=== PATIENT | male | born 1950 | race Caucasian/White ===

== ENCOUNTER 2019-07-03 01:35 | Emergency (ER) | payer OTHER ==
[2019-07-03 01:46] VITALS: BP 141/69; PULSE 73; TEMP 98.5; BMI 26.9
--- NOTE | 2019-07-03 02:32 | PDOC ---
History of Present Illness - General Chief Complaint: Back Pain Stated Complaint: PAIN Time Seen by Provider: 07/03/19 02:24 History Source: Patient - History of Present Illness Initial Comments: 07/03/19 02:27 68 year old male c/o right buttocks radiating down to right leg. denies trauma/ injiury/ fall denies numbness. weakness or tingling to the leg. patient reports taking tylenol with no pain relief. PMHX: hypertension, diabetes, hypercholesteremia 07/03/19 02:31 Past History - Past Medical History Allergies/Adverse Reactions: Allergies Allergy/AdvReac Type Severity Reaction Status Date / Time No Known Allergies Allergy Verified 07/03/19 01:46 Home Medications: Ambulatory Orders Atorvastatin Ca [Lipitor] 20 mg PO HS 11/29/14 Lisinopril [Prinivil -] 2.5 mg PO DAILY 11/29/14 Insulin (Levemir) [Levemir Flexpen -] 30 units SQ DAILY #0 04/26/15 Cyclobenzaprine HCl [Flexeril -] 10 mg PO TID #10 tablet 07/03/19 Ibuprofen 600 mg PO QID PRN #20 tablet 07/03/19 COPD: No Diabetes: Yes Hypercholesterolemia: Yes - Psycho Social/Smoking Cessation Hx Smoking History: Never smoked Have you smoked in the past 12 months: No Information on smoking cessation initiated: No Hx Alcohol Use: No Drug/Substance Use Hx: No Substance Use Type: Alcohol Review of Systems - Review of Systems Able to Perform ROS?: Yes Is the patient limited Mauritanian proficient: No Constitutional: No: Symptoms Reported, See HPI, Chills, Diaphoresis, Fever, Loss of Appetite, Malaise, Night Sweats, Weakness, Weight Stable, Unintentional Wgt. Loss, Unexplained wgt Loss, Other Musculoskeletal: Yes: Back Pain *Physical Exam - Vital Signs Last Vital Signs Temp Pulse Resp BP Pulse Ox 98.5 F 73 18 141/69 97 07/03/19 01:43 07/03/19 01:43 07/03/19 01:43 07/03/19 01:43 07/03/19 01:43 - Physical Exam General Appearance: Yes: Appropriately Dressed Musculoskeletal: positive: Other (full ROM to right hip, able to raise leg. ). negative: CVA Tenderness, Vertebral Tenderness Extremity: positive: Normal Capillary Refill Integumentary: positive: Normal Color, Dry, Warm Neurologic: positive: Fully Oriented, Alert, Normal Mood/Affect ED Progress Note - Progress Note Progress Note: 07/03/19 04:18 A: right sciatica pain P: Nsaids; Muscle spasms Discharge - Discharge Information Problems reviewed: Yes Clinical Impression/Diagnosis: Sciatica of right side without back pain Disposition: HOME - Additional Discharge Information Prescriptions: Cyclobenzaprine HCl [Flexeril -] 10 mg PO TID #10 tablet Ibuprofen 600 mg PO QID PRN #20 tablet PRN Reason: Back Pain - Follow up/Referral Referrals: Joellen Sanches MD [Primary Care Provider] - Call tomorrow Yovani Lynn MD [Staff Physician] - - Patient Discharge Instructions Patient Printed Discharge Instructions: Sciatica Additional Instructions: 1. Please return to the emergency department with any numbness, tingling, weakness, numbness or tingling to groin or legs, or loss of bowel or bladder function. 2. Use pain medication as ordered. 3. Please is to followup in the office of Dr. lynn for evaluation within a week if no improvement. 4. Ice or heat 5. Refrain from lifting anything above 10 pounds, until pain resolved. - Post Discharge Activity
--- NOTE | 2019-07-03 02:35 | PDOC ---
*Physical Exam - Vital Signs Last Vital Signs Temp Pulse Resp BP Pulse Ox 98.5 F 73 18 141/69 97 07/03/19 01:43 07/03/19 01:43 07/03/19 01:43 07/03/19 01:43 07/03/19 01:43 Medical Decision Making - Medical Decision Making 07/03/19 02:35 Patient seen by the advanced practice provider under my direct supervision. Ancillary testing reviewed as necessary. I agree with plan as outlined by the advanced practice provider. Discharge - Discharge Information Problems reviewed: Yes Clinical Impression/Diagnosis: Sciatica of right side without back pain Disposition: HOME - Additional Discharge Information Prescriptions: Cyclobenzaprine HCl [Flexeril -] 10 mg PO TID #10 tablet Ibuprofen 600 mg PO QID PRN #20 tablet PRN Reason: Back Pain - Follow up/Referral Referrals: Yovani Lynn MD [Staff Physician] - Joellen Sanches MD [Primary Care Provider] - Call tomorrow - Patient Discharge Instructions Patient Printed Discharge Instructions: Sciatica Additional Instructions: 1. Please return to the emergency department with any numbness, tingling, weakness, numbness or tingling to groin or legs, or loss of bowel or bladder function. 2. Use pain medication as ordered. 3. Please is to followup in the office of Dr. lynn for evaluation within a week if no improvement. 4. Ice or heat 5. Refrain from lifting anything above 10 pounds, until pain resolved. - Post Discharge Activity
[2019-07-03] MEDS ORDERED: IBUPROFEN 600 MG TABLET (FP) PO ONE ×2 (02:59→03:04)
== END 2019-07-03 03:04 | disposition home or self-care (01) ==
LOC: JER 01:35
DX: M54.31 Sciatica, right side (principal); I10 Essential (primary) hypertension; E78.00 Pure hypercholesterolemia, unspecified; E11.9 Type 2 diabetes mellitus without complications; Z79.4 Long term (current) use of insulin
CPT/HCPCS: 99281-25

== ENCOUNTER 2020-05-03 03:11 | Observation (INO) | payer OTHER ==
[2020-05-03 04:43] LABS: BASO % 0.4 % (0-2.0); HEMATOCRIT 33.1 % (35.4-49); HEMOGLOBIN 11.1 GM/dL (11.7-16.9); LYMPH % 42.6 % (8-40); MCH 30.3 pg (25.7-33.7); MCHC 33.6 g/dl (32.0-35.9); MEAN CELL VOLUME 90.1 fl (80-96); MEAN PLT VOLUME 8.6 fl (7.5-11.1); MONO % 12.6 % (3.8-10.2); NEUT % 42.4 % (42.8-82.8); PLATELET COUNT 141 K/MM3 (134-434); RBC 3.67 M/mm3 (4.00-5.60); RDW 14.7 % (11.9-15.9); WHITE BLOOD COUNT 2.7 K/mm3 (4.0-10.0)
--- NOTE | 2020-05-03 04:45 | PDOC ---
History of Present Illness - General Chief Complaint: Shortness of Breath Stated Complaint: DIFF BREATHING Time Seen by Provider: 05/03/20 04:07 History Source: Patient Exam Limitations: No Limitations - History of Present Illness Initial Comments: 05/03/20 04:42 69M PMH HTN, HLD, IDDM presenting with orthopnea x 1 month and nocturnal substernal chest pain x 2 night w/o radiating. Denies f/c, ESTEBAN, vision changes, lightheadedness/dizziness. Denies resting or daytime SOB. No recent illnesses. Denies n/v, abd pain. NKDA. Past History - Medical History Allergies/Adverse Reactions: Allergies Allergy/AdvReac Type Severity Reaction Status Date / Time No Known Allergies Allergy Verified 05/03/20 04:29 Home Medications: Ambulatory Orders Atorvastatin Ca [Lipitor] 80 mg PO HS 05/03/20 Ezetimibe 10 mg PO DAILY 05/03/20 Insulin Glargine,Hum.rec.anlog [Lantus Solostar] 34 unit SQ HS 05/03/20 Insulin Lispro [Humalog] 14 unit SQ DAILY 05/03/20 Lisinopril [Zestril] 2.5 mg PO DAILY 05/03/20 Metformin HCl [Glucophage] 500 mg PO BID 05/03/20 COPD: No Diabetes: Yes Hypercholesterolemia: Yes - Psycho-Social/Smoking History Smoking History: Unknown if ever smoked Have you smoked in the past 12 months: No - Substance Abuse Hx (Audit-C & DAST Scrn) How often the patient has a drink containing alcohol: Never Score: In Men: 4 or > Positive; In Women: 3 or > Positive: 0 Screen Result (Pos requires Nsg. Audit-10AR): Negative Review of Systems - Review of Systems Comments:: 05/04/20 08:52 CONSTITUTIONAL: Denies F / C HEENT: Denies headache, lightheadedness, dizziness, changes in vision, cough, sore throat, rhinorrhea RESP: +orthopnea CARD: +cp GI: Denies N / V / D, abdominal pain, bloody stool, inability to tolerate PO : Denies dysuria NEURO: Denies numbness, tingling, weakness MSK: Denies back pain SKIN: Denies rashes *Physical Exam - Vital Signs Last Vital Signs Temp Pulse Resp BP Pulse Ox 98.6 F 63 18 138/69 98 05/03/20 03:39 05/03/20 03:39 05/03/20 03:39 05/03/20 03:39 05/03/20 03:39 - Physical Exam 05/04/20 08:52 GEN: NAD, AAOx3. HEENT: NC/AT, EOMI, PERRL, Normal voice. Supple neck w/ FROM. CV: S1/S2, RRR, no m/r/g LUNG: CTAB, no wheezes, crackles, rales, rhonchi. GI: Soft, ndnt, +BS, no guarding, no rebound. No masses. Neg CVAT b/l. MSK: Trace pitting edema. No obvious deformities of all extremities. SKIN: Warm, dry, no rashes appreciated. PSYCH: Normal mood and affect. NEURO: Moving all extremities well. ED Treatment Course - LABORATORY CBC & Chemistry Diagram: 05/04/20 06:26 05/04/20 06:26 - RADIOLOGY Radiology Studies Ordered: Category Date Time Status CHEST X-RAY PORTABLE* [RAD] Stat Radiology 05/03/20 04:16 Ordered Medical Decision Making - Medical Decision Making 05/04/20 08:52 69F c/o one month orthopnea and 2 nights of substernal chest pain nonradiating. - cardiac labs - ekg - cxr 05/03/20 05:37 EKG 04:32 HR 69 axis and intervals wnl, sinus, no ISIDRO/D, no TWI labs reviewed imaging reviewed concerning presentation will admit tele-obs; pt has no cards 05/03/20 06:43 endorsed to hospitalist team for admission; pending day team attending name Discharge - Discharge Information Problems reviewed: Yes Clinical Impression/Diagnosis: Orthopnea, Chest pain Condition: Stable - Admission Yes - Follow up/Referral - Patient Discharge Instructions - Post Discharge Activity
[2020-05-03 04:59] LABS: INR 0.97 (0.83-1.09); PROTHROMBIN TIME (PATIENT) 11.4 SEC (9.7-13.0)
[2020-05-03 05:02] LABS: ACTIVATED PTT 32.1 SECONDS (25.2-36.5)
[2020-05-03 05:05] LABS: ALBUMIN 3.8 g/dl (3.4-5.0); ALK PHOS 70 U/L (45-117); ANION GAP 6 MMOL/L (8-16); BILIRUBIN,TOTAL 0.6 mg/dL (0.2-1); BLOOD UREA NITROGEN 13.4 mg/dL (7-18); CALCIUM 9.1 mg/dL (8.5-10.1); CHLORIDE 110 mmol/L (98-107); CO2 26 mmol/L (21-32); CREATININE 1.1 mg/dL (0.55-1.3); GLUCOSE,RANDOM 114 mg/dL (74-106); N-TERMINAL BNP 72.8 pg/ml (5-125); POTASSIUM 4.3 mmol/L (3.5-5.1); SGOT/AST 37 U/L (15-37); SGPT/ALT 36 U/L (13-61); SODIUM 142 mmol/L (136-145); TOT PROT 6.1 g/dl (6.4-8.2)
--- NOTE | 2020-05-03 05:42 | PDOC ---
Attending Attestation - Resident Resident Name: Lonnie Heath - ED Attending Attestation I have performed the following: I have examined & evaluated the patient, The case was reviewed & discussed with the resident, I agree w/resident's findings & plan, Exceptions are as noted - HPI HPI: 05/03/20 05:41 69 M with h/o HTN, HLD, DM, presenting with orthopnea x 1 month. Pt reports shortness of breath every night about 15 min after falling asleep. For the past 2 nights, he has also been experiencing substernal chest pain. Denies leg swelling. Denies F/C/cough. - Physicial Exam PE: 05/03/20 05:42 See resident exam - Medical Decision Making 05/03/20 05:42 69 M with orthopnea, chest pain. Possible MOY. Will r/o CHF and ACS. EKG without acute ischemia. - Labs, trop, BNP - CXR Discharge - Discharge Information Problems reviewed: Yes Clinical Impression/Diagnosis: Orthopnea, Chest pain Diabetes mellitus Qualifiers: Diabetes mellitus type: type 2 Diabetes mellitus complication status: with hyperglycemia Qualified Code(s): E11.65 - Condition: Stable - Follow up/Referral - Patient Discharge Instructions - Post Discharge Activity
[2020-05-03] MEDS ORDERED: LISINOPRIL 5 MG TABLET (FP) ONE (10:06)
[2020-05-03] MEDS ORDERED: ENOXAPARIN NA (PORCINE) 40 MG/0.4 ML DISP.SYRIN SQ ONE (10:07)
[2020-05-03] MEDS: EZETIMIBE 10 MG TABLET (FP) PO SCH (10:18)
[2020-05-03] MEDS: LISINOPRIL 5 MG TABLET (FP) PO SCH (10:18)
[2020-05-03] MEDS: ENOXAPARIN NA (PORCINE) 40 MG/0.4 ML DISP.SYRIN SQ SCH (10:18)
[2020-05-03] MEDS: INSULIN SLIDING SCALE (NOVOLOG) 1 VIAL SQ SCH ×3 (10:19→22:16)
--- NOTE | 2020-05-03 12:17 | HP ---
CHIEF COMPLAINT: shortness of breath, chest pain PCP: Dr. Sanches HISTORY OF PRESENT ILLNESS: Patient is a 69 year old male with history of hypertension, hyperlipidemia, diabetes mellitus (insulin dependent) presents with complaint of orthopnea. He endorses that for the past month he feels worsening shortness of breath after he lays down. He states that over the past two days the shortness of breath is accompanied by a dull left sided chest pain. which prompted his hospital presentation. He denies prior occurrence of these symptoms. He sleeps with one pillow, which is his baseline. The shortness of breath is not pleuritic. Patient endorses that he has no chest pain/ shortness of breath with physical exertion; these symptoms only occur when he tries to go to sleep. He denies sick contacts. Denies subjective fevers, chills, palpitations, abdominal pain, nausea, vomiting, diarrhea, constipation, melena, hematochezia. Upon my encounter, patient resting comfortably, without any chest pain/ pressure. ER course was notable for: (1) EKG normal sinus rhythm at 69 BPM. Initial troponin 0.02 (2) (3) Recent Travel: denies PAST MEDICAL HISTORY: hypertension, hyperlipidemia, diabetes mellitus (insulin dependent) PAST SURGICAL HISTORY: denies FAMILY HISTORY: Mother: diabetes mellitus Father: NH at 64 years old Social History: Lives with roommate. 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 Independent in activities of daily living. Does not ambulate with cane of walker at baseline. Smoking: denies smoking cigarettes Alcohol: endorses one- two beers a week Drugs: denies illicit drug use Allergies No Known Allergies Allergy (Verified 05/03/20 04:29) HOME MEDICATIONS: Home Medications Medication Instructions Recorded Atorvastatin Ca [Lipitor] 80 mg PO HS 05/03/20 Ezetimibe 10 mg PO DAILY 05/03/20 Insulin Glargine,Hum.rec.anlog unit SQ 05/03/20 [Lantus Solostar] Insulin Lispro [Humalog] unit SQ 05/03/20 Lisinopril [Zestril] 2.5 mg PO DAILY 05/03/20 Metformin HCl [Glucophage] 500 mg PO BID 05/03/20 REVIEW OF SYSTEMS CONSTITUTIONAL: Absent: fever, chills, diaphoresis, generalized weakness, malaise, loss of appetite, weight change HEENT: Absent: rhinorrhea, nasal congestion, throat pain, throat swelling, difficulty swallowing, mouth swelling, ear pain, eye pain, visual changes CARDIOVASCULAR: Admits: rica pain (currently resolved). Absent: syncope, palpitations, irregular heart rate, lightheadedness, peripheral edema RESPIRATORY: Admits: shortness of breath, orthopnea. Absent: cough, dyspnea with exertion, wheezing, stridor, hemoptysis GASTROINTESTINAL: Absent: abdominal pain, abdominal distension, nausea, vomiting, diarrhea, constipation, melena, hematochezia GENITOURINARY: Absent: dysuria, frequency, urgency, hesitancy, hematuria, flank pain, genital pain MUSCULOSKELETAL: Absent: myalgia, arthralgia, joint swelling, back pain, neck pain SKIN: Absent: rash, itching, pallor HEMATOLOGIC/IMMUNOLOGIC: Absent: easy bleeding, easy bruising, lymphadenopathy, frequent infections ENDOCRINE: Absent: unexplained weight gain, unexplained weight loss, heat intolerance, cold intolerance NEUROLOGIC: Absent: headache, focal weakness or paresthesias, dizziness, unsteady gait, seizure, mental status changes, bladder or bowel incontinence PSYCHIATRIC: Absent: anxiety, depression, suicidal or homicidal ideation, hallucinations. PHYSICAL EXAMINATION Vital Signs - 24 hr 05/03/20 05/03/20 05/03/20 03:39 06:04 06:17 Temperature 98.6 F 98.5 F Pulse Rate 63 Pulse Rate [ 63 Left] Respiratory 18 16 Rate Blood Pressure 138/69 Blood Pressure 126/72 [Arm] O2 Sat by Pulse 98 99 100 Oximetry (%) 05/03/20 05/03/20 05/03/20 08:00 08:04 10:13 Temperature 98.5 F Pulse Rate Pulse Rate [ 61 61 56 L Left] Respiratory 18 18 16 Rate Blood Pressure Blood Pressure 124/64 124/64 116/85 [Arm] O2 Sat by Pulse 98 98 99 Oximetry (%) GENERAL: The patient is awake, alert, and fully oriented, in no acute distress. HEAD: Normocephalic, atraumatic. EYES: PERRL, extraocular movements intact, sclera anicteric, conjunctiva clear. ENT: Oropharynx clear, without erythema or exudates. Moist mucous membranes. NECK: Trachea midline, full range of motion. Supple without lymphadenopathy. LUNGS: Breath sounds equal, clear to auscultation bilaterally. No wheezes, no cr ackles. No accessory muscle use. HEART: Regular rate and rhythm. S1, S2 without murmur, rub or gallop. Chest pain not reproducible with palpation. ABDOMEN: Soft, nondistended, nontender to light and deep palpation x4 quadrants. No rebound tenderness, no guarding. Normoactive bowel sounds x4 quadrants. No masses appreciated. EXTREMITIES: 2+ radial, dorsalis pedis pulses bilaterally. Warm, well-perfused. No lower extremity edema bilaterally. NEUROLOGICAL: Cranial nerves II through XII grossly intact. Normal speech. No gross focal deficits. PSYCH: Normal mood, normal affect upon my encounter. SKIN: Warm, dry. Venous stasis changes in the lower legs/ ankles. Laboratory Results - last 24 hr 05/03/20 05/03/20 05/03/20 04:15 04:15 04:15 WBC 2.7 L RBC 3.67 L Hgb 11.1 L Hct 33.1 L MCV 90.1 MCH 30.3 MCHC 33.6 RDW 14.7 Plt Count 141 MPV 8.6 Absolute Neuts (auto) 1.1 L Neutrophils % 42.4 L Lymphocytes % 42.6 H Monocytes % 12.6 H Eosinophils % 2.0 D Basophils % 0.4 Nucleated RBC % 0 PT with INR 11.40 INR 0.97 PTT (Actin FS) 32.1 Sodium 142 Potassium 4.3 Chloride 110 H Carbon Dioxide 26 Anion Gap 6 L BUN 13.4 Creatinine 1.1 Est GFR (CKD-EPI)AfAm 78.41 Est GFR (CKD-EPI)NonAf 67.66 POC Glucometer Random Glucose 114 H Hemoglobin A1c % Calcium 9.1 Total Bilirubin 0.6 AST 37 ALT 36 Alkaline Phosphatase 70 Creatine Kinase 188 Creatine Kinase Index 1.5 CK-MB (CK-2) 3.0 Troponin I < 0.02 B-Natriuretic Peptide 72.8 Total Protein 6.1 L Albumin 3.8 05/03/20 05/03/20 05/03/20 04:15 10:16 10:21 WBC RBC Hgb Hct MCV MCH MCHC RDW Plt Count MPV Absolute Neuts (auto) Neutrophils % Lymphocytes % Monocytes % Eosinophils % Basophils % Nucleated RBC % PT with INR INR PTT (Actin FS) Sodium Potassium Chloride Carbon Dioxide Anion Gap BUN Creatinine Est GFR (CKD-EPI)AfAm Est GFR (CKD-EPI)NonAf POC Glucometer 134 Random Glucose Hemoglobin A1c % 7.6 H Calcium Total Bilirubin AST ALT Alkaline Phosphatase Creatine Kinase Creatine Kinase Index CK-MB (CK-2) Troponin I < 0.02 B-Natriuretic Peptide Total Protein Albumin 05/03/20 10:39 WBC RBC Hgb Hct MCV MCH MCHC RDW Plt Count MPV Absolute Neuts (auto) Neutrophils % Lymphocytes % Monocytes % Eosinophils % Basophils % Nucleated RBC % PT with INR INR PTT (Actin FS) Sodium Potassium Chloride Carbon Dioxide Anion Gap BUN Creatinine Est GFR (CKD-EPI)AfAm Est GFR (CKD-EPI)NonAf POC Glucometer Random Glucose Hemoglobin A1c % 7.8 H Calcium Total Bilirubin AST ALT Alkaline Phosphatase Creatine Kinase Creatine Kinase Index CK-MB (CK-2) Troponin I B-Natriuretic Peptide Total Protein Albumin ASSESSMENT/PLAN: Patient is a 69 year old male with history of hypertension, hyperlipidemia, diabetes mellitus (insulin dependent) presents with complaint of orthopnea. Orthopnea, atypical chest pain -Symptoms ocuring mainly in evening when patient trying to sleep. Curretnly without chest pain. EKG without ischemic changes, initial troponin negative. Concern for obstructive sleep apnea, however will also need to rule out ACS. Doubt CHF exacerbation given BNP 72, clear lungs, and negative lower extremity edema bilaterally. Less likely PE given patient saturating 100% on room air, without tachypnea, or tachycardia. -Telemetry cardiac monitoring. -Overnight continuous pulse oximetry monitoring. -Obtain cardiac transthoracic ECHO -Serial troponin -Cardiology evaluation (Dr. Bartlett). Given risk factors,family history may need stress testing prior to discharge. -Will initiate PPI- upon re-evaluation pain may be epigastric ?GERD History of hypertension -Reinstate home Lisinopril History of hyperliidemia -Reinstate home Atorvastatin, Ezetimibe History of diabetes mellitus, insulin dependent -HgbA1c -Fingerstick blood glucose ACHS -Insulin sliding sale ACHS -Insulin Levemir FEN -No IV fluids indicated -Follow BMP -Sodium controlled, diabetic modification diet Prophylaxis -Lovenox 40mg subq daily Disposition -Telemetry observation. Family Medical History Family History: As Documented Visit type - Medication Review Med list reviewed for High Risk Meds patients 65 and older: Yes - Emergency Visit Emergency Visit: Yes ED Registration Date: 05/03/20 Care time: The patient presented to the Emergency Department on the above date and was hospitalized for further evaluation of their emergent condition. - New Patient This patient is new to me today: Yes Date on this admission: 05/04/20 - Critical Care Critical Care patient: No ATTENDING PHYSICIAN STATEMENT I saw and evaluated the patient. I reviewed the resident's note and discussed the case with the resident. I agree with the resident's findings and plan as documented. SUBJECTIVE: OBJECTIVE: ASSESSMENT AND PLAN:
[2020-05-03] MEDS: PANTOPRAZOLE 40 MG TABLET PO SCH (12:37)
--- NOTE | 2020-05-03 16:36 | PN ---
Teaching Attending Note Name of Resident: John Schwartz ATTENDING PHYSICIAN STATEMENT I saw and evaluated the patient. I reviewed the resident's note and discussed the case with the resident. I agree with the resident's findings and plan as documented. SUBJECTIVE: Reports SOB while sleeping for past 2 nights with associated central chest discomfort. No fever/chills/cough/sputum/hemoptysis. OBJECTIVE: Afebrile, Hemodynamically stable. Last Vital Signs Temp Pulse Resp BP Pulse Ox 98.5 F 56 L 16 116/85 99 05/03/20 08:04 05/03/20 10:13 05/03/20 10:13 05/03/20 10:13 05/03/20 10:13 HEENT - Atraumatic, Normocephalic. Heart - S1, S2, RRR Lungs - clear to auscultation Abdomen - Soft, non-tender. Bowel Sounds normal. Extremities - no edema, no calf tenderness Neuro - AAO x 3. Tone/Power normal. Laboratory Results - last 24 hr 05/03/20 05/03/20 05/03/20 04:15 04:15 04:15 WBC 2.7 L RBC 3.67 L Hgb 11.1 L Hct 33.1 L MCV 90.1 MCH 30.3 MCHC 33.6 RDW 14.7 Plt Count 141 MPV 8.6 Absolute Neuts (auto) 1.1 L Neutrophils % 42.4 L Lymphocytes % 42.6 H Monocytes % 12.6 H Eosinophils % 2.0 D Basophils % 0.4 Nucleated RBC % 0 PT with INR 11.40 INR 0.97 PTT (Actin FS) 32.1 Sodium 142 Potassium 4.3 Chloride 110 H Carbon Dioxide 26 Anion Gap 6 L BUN 13.4 Creatinine 1.1 Est GFR (CKD-EPI)AfAm 78.41 Est GFR (CKD-EPI)NonAf 67.66 POC Glucometer Random Glucose 114 H Hemoglobin A1c % Calcium 9.1 Total Bilirubin 0.6 AST 37 ALT 36 Alkaline Phosphatase 70 Creatine Kinase 188 Creatine Kinase Index 1.5 CK-MB (CK-2) 3.0 Troponin I < 0.02 B-Natriuretic Peptide 72.8 Total Protein 6.1 L Albumin 3.8 05/03/20 05/03/20 05/03/20 04:15 10:16 10:21 WBC RBC Hgb Hct MCV MCH MCHC RDW Plt Count MPV Absolute Neuts (auto) Neutrophils % Lymphocytes % Monocytes % Eosinophils % Basophils % Nucleated RBC % PT with INR INR PTT (Actin FS) Sodium Potassium Chloride Carbon Dioxide Anion Gap BUN Creatinine Est GFR (CKD-EPI)AfAm Est GFR (CKD-EPI)NonAf POC Glucometer 134 Random Glucose Hemoglobin A1c % 7.6 H Calcium Total Bilirubin AST ALT Alkaline Phosphatase Creatine Kinase Creatine Kinase Index CK-MB (CK-2) Troponin I < 0.02 B-Natriuretic Peptide Total Protein Albumin 05/03/20 05/03/20 10:39 14:36 WBC RBC Hgb Hct MCV MCH MCHC RDW Plt Count MPV Absolute Neuts (auto) Neutrophils % Lymphocytes % Monocytes % Eosinophils % Basophils % Nucleated RBC % PT with INR INR PTT (Actin FS) Sodium Potassium Chloride Carbon Dioxide Anion Gap BUN Creatinine Est GFR (CKD-EPI)AfAm Est GFR (CKD-EPI)NonAf POC Glucometer Random Glucose Hemoglobin A1c % 7.8 H Calcium Total Bilirubin AST ALT Alkaline Phosphatase Creatine Kinase 140 Creatine Kinase Index CK-MB (CK-2) Troponin I < 0.02 B-Natriuretic Peptide Total Protein Albumin Current Medications Generic Name Dose Route Start Last Admin Trade Name Freq PRN Reason Stop Dose Admin Atorvastatin Calcium 80 mg 05/03/20 22:00 Lipitor - PO HS DANI Ezetimibe 10 mg 05/03/20 10:00 05/03/20 10:18 Zetia - PO 10 mg DAILY DANI Administration Enoxaparin Sodium 40 mg 05/03/20 10:00 05/03/20 10:18 Lovenox - SQ 40 mg DAILY DANI Administration Insulin Aspart 1 vial 05/03/20 11:00 05/03/20 10:19 Novolog Vial Sliding Scale - SQ Not Given ACHS [facility] Protocol Insulin Detemir 20 units 05/03/20 22:00 Levemir Vial SQ HS DANI Lisinopril 2.5 mg 05/03/20 10:00 05/03/20 10:18 Prinivil PO 2.5 mg DAILY DANI Administration Pantoprazole Sodium 40 mg 05/03/20 12:30 05/03/20 12:37 Protonix - PO 40 mg DAILY DANI Administration Home Medications Medication Instructions Recorded Atorvastatin Ca [Lipitor] 80 mg PO HS 05/03/20 Ezetimibe 10 mg PO DAILY 05/03/20 Insulin Glargine,Hum.rec.anlog unit SQ 05/03/20 [Lantus Solostar] Insulin Lispro [Humalog] unit SQ 05/03/20 Lisinopril [Zestril] 2.5 mg PO DAILY 05/03/20 Metformin HCl [Glucophage] 500 mg PO BID 05/03/20 ASSESSMENT AND PLAN: 69 year old male with history of HTN, HLD, DM 2, presents with complaint of orthopnea with central chest discomfort. 1. Atypical Chest Pain on background history of Orthopnea, worse over past month. ECG - no acute changes TropI neg x 3. BNP 72 Telemonitoring Echo No signs of fluid overload/CHF Cardio evaluation requested Possible GERD - trial of PPI. 2. HTN - Continue Lisinopril 3. HLD - Continue Lipitor 4. DM 2 - Metformin held. Maintain on Levemir/Novolog sliding scale. 5. L Humerus Sclerotic density, possible bone infarct - further confirmatory Ix as out-patient. DVT Px - Lovenox SQ
[2020-05-03] MEDS: INSULIN (LEVEMIR) 100 UNITS/ML UNITS SQ SCH (22:16)
[2020-05-03] MEDS: ATORVASTATIN CA 80 MG TABLET (FP) PO SCH (22:16)
[2020-05-03 22:43] VITALS: BMI 27.6
[2020-05-04] MEDS: INSULIN SLIDING SCALE (NOVOLOG) 1 VIAL SQ SCH ×4 (06:16→21:55)
--- NOTE | 2020-05-04 07:32 | CON.CARD ---
Consult Consult Specialty:: cardio - History of Present Illness Chief Complaint: sob History of Present Illness: 69 year old male here with orthopnea. he notes shortness of breath after he lays down for the past 3 mo, never sob with exertion/activity. for past few days this is accompanied by a dull left sided chest pain. states that he can walk a lot outside, likes to in fact, 10 or more blocks and never feels chest discomfort or sob. but VERY prominent sx's when lays down in bed. stable for a while now. no leg swelling. denies nasal congestion/obstruction, wheezing or acid/heartburn sx's BNP 72 trop neg x 3 he is monitored by heme at [facility] for leukopenia and anemia (baseline 12), etiology undetermined at this point prior h/o etoh use never cigs fever with cough in 01/06--Covid Ab 02/[address] meza (our practice) ordered echo and stress test due to above sx's back in 02/05, not yet completed PMH: HTN, HPL, DM - Alcohol/Substance Use Hx Alcohol Use: No - Smoking History Smoking history: Never smoked Have you smoked in the past 12 months: No Home Medications - Allergies Allergies/Adverse Reactions: Allergies Allergy/AdvReac Type Severity Reaction Status Date / Time No Known Allergies Allergy Verified 05/03/20 04:29 - Home Medications Home Medications: Ambulatory Orders Atorvastatin Ca [Lipitor] 80 mg PO HS 05/03/20 Ezetimibe 10 mg PO DAILY 05/03/20 Insulin Glargine,Hum.rec.anlog [Lantus Solostar] 34 unit SQ HS 05/03/20 Insulin Lispro [Humalog] 14 unit SQ DAILY 05/03/20 Lisinopril [Zestril] 2.5 mg PO DAILY 05/03/20 Metformin HCl [Glucophage] 500 mg PO BID 05/03/20 Family Medical History Family History: Denies (no known cmp) Review of Systems - Review of Systems Constitutional: denies: Chills, Fever Eyes: denies: Eye Pain HENT: denies: Nasal Congestion Neck: denies: Stiffness Cardiovascular: denies: Palpitations Respiratory: reports: Orthopnea. denies: PND, Wheezing Gastrointestinal: denies: Diarrhea, Rectal Bleeding Genitourinary: denies: Burning, Hematuria Musculoskeletal: denies: Muscle Pain Integumentary: denies: Rash Neurological: denies: Numbness, Seizure, Syncope Endocrine: denies: Excessive Sweating Hematology/Lymphatic: denies: Excessive Bleeding Vital Signs: Vital Signs Temperature 98.3 F 05/04/20 06:00 Pulse Rate 55 L 05/04/20 06:00 Respiratory Rate 20 05/04/20 06:00 Blood Pressure 136/63 05/04/20 06:00 O2 Sat by Pulse Oximetry (%) 95 05/04/20 06:00 Constitutional: Yes: Well Nourished, No Distress Eyes: No: Sclera Icterus HENT: No: Nasal Congestion Neck: No: Decreased ROM Respiratory: Yes: CTA Bilaterally. No: Accessory Muscle Use Gastrointestinal: Yes: Normal Bowel Sounds. No: Distention, Hepatomegaly, Palpable Mass, Tenderness Cardiovascular: Yes: Regular Rate and Rhythm JVD: No Carotid Bruit: No PMI: Non-Displaced Heart Sounds: Yes: S1, S2. No: Gallop Murmur: No: Systolic Murmur, Diastolic Murmur Musculoskeletal: Yes: Other (No kyphosis) Extremities: No: Cool, Cyanosis Edema: No Peripheral Pulses: 2+ Left Carotid, 2+ Right Carotid, 2+ Left Doralis Pedis, 2+ Right Dorsalis Pedis Integumentary: No: Jaundice Neurological: Yes: Alert, Oriented (x3) Psychiatric: No: Agitated - Other Data Labs, Other Data: CBC, BMP 05/03/20 04:15 05/03/20 04:15 INR, PTT INR 0.97 (0.83-1.09) 05/03/20 04:15 Troponin, BNP 05/03/20 05/03/20 10:21 14:36 Troponin I < 0.02 < 0.02 Troponin, BNP 05/03/20 05/03/20 10:21 14:36 Troponin I < 0.02 < 0.02 Assessment/Plan ECG: NSR, WNL CXR: clear lungs/pleura tele: NSR sob, chest discomfort: -sx began 02/05, following undiagnosed/untreated Covid 01/06 (Abs 02/05 positive) -atypical occurs only in bed, not with activity -has had no signs of HF and no activities with moderate amt of exertion. -ECG normal, trop neg x 3 -this is not a sx of angina--stress test not indicated -echo tomorrow for LVSF (rf's of etoh, post-covid, DM) HTN: -BP controlled -home meds HPL: -cont prior plan DM: -per hospitalist leukopenia, anemia: -chronic, stable--being followed closely by his PMD and by heme at [facility]
[2020-05-04 07:56] LABS: HEMATOCRIT 34.6 % (35.4-49); HEMOGLOBIN 11.7 GM/dL (11.7-16.9); MCH 30.4 pg (25.7-33.7); MCHC 33.8 g/dl (32.0-35.9); MEAN PLT VOLUME 9.4 fl (7.5-11.1); PLATELET COUNT 146 K/MM3 (134-434); RBC 3.85 M/mm3 (4.00-5.60); RDW 14.6 % (11.9-15.9); WHITE BLOOD COUNT 3.9 K/mm3 (4.0-10.0)
[2020-05-04 08:33] LABS: BLOOD UREA NITROGEN 14.2 mg/dL (7-18); CALCIUM 9.1 mg/dL (8.5-10.1); MAGNESIUM 2.1 mg/dL (1.8-2.4); PHOSPHOROUS 3.6 mg/dL (2.5-4.9); POTASSIUM 4.1 mmol/L (3.5-5.1)
[2020-05-04] MEDS: PANTOPRAZOLE 40 MG TABLET PO SCH (09:24)
[2020-05-04] MEDS: ENOXAPARIN NA (PORCINE) 40 MG/0.4 ML DISP.SYRIN SQ SCH (09:24)
[2020-05-04] MEDS: LISINOPRIL 5 MG TABLET (FP) PO SCH (09:24)
[2020-05-04] MEDS: EZETIMIBE 10 MG TABLET (FP) PO SCH (09:24)
--- NOTE | 2020-05-04 13:17 | PN ---
Progress Note (short form) - Note Progress Note: SUBJECTIVE: Reports SOB while sleeping with associated central chest discomfort. No fever/chills/cough/sputum/hemoptysis. OBJECTIVE: Afebrile, Hemodynamically stable. Last Vital Signs Temp Pulse Resp BP Pulse Ox 97.8 F 68 16 116/56 L 96 05/04/20 09:28 05/04/20 09:28 05/04/20 09:28 05/04/20 09:28 05/04/20 09:28 Heart - S1, S2, RRR Lungs - clear to auscultation Abdomen - Soft, non-tender. Bowel Sounds normal. Extremities - no edema, no calf tenderness Neuro - AAO x 3. Tone/Power normal. Laboratory Results - last 24 hr 05/03/20 05/03/20 05/03/20 06:15 14:36 17:29 WBC RBC Hgb Hct MCV MCH MCHC RDW Plt Count MPV Sodium Potassium Chloride Carbon Dioxide Anion Gap BUN Creatinine Est GFR (CKD-EPI)AfAm Est GFR (CKD-EPI)NonAf POC Glucometer 138 Random Glucose Calcium Phosphorus Magnesium Creatine Kinase 140 Troponin I < 0.02 COVID-19 ([facility]) Not detected 05/03/20 05/04/20 05/04/20 22:04 06:15 06:26 WBC 3.9 L RBC 3.85 L Hgb 11.7 Hct 34.6 L MCV 90.0 MCH 30.4 MCHC 33.8 RDW 14.6 Plt Count 146 MPV 9.4 Sodium Potassium Chloride Carbon Dioxide Anion Gap BUN Creatinine Est GFR (CKD-EPI)AfAm Est GFR (CKD-EPI)NonAf POC Glucometer 214 85 Random Glucose Calcium Phosphorus Magnesium Creatine Kinase Troponin I COVID-19 ([facility]) 05/04/20 05/04/20 06:26 11:54 WBC RBC Hgb Hct MCV MCH MCHC RDW Plt Count MPV Sodium 143 Potassium 4.1 Chloride 109 H Carbon Dioxide 28 Anion Gap 6 L BUN 14.2 Creatinine 1.0 Est GFR (CKD-EPI)AfAm 87.99 Est GFR (CKD-EPI)NonAf 75.92 POC Glucometer 220 Random Glucose 86 Calcium 9.1 Phosphorus 3.6 Magnesium 2.1 Creatine Kinase Troponin I COVID-19 ([facility]) Current Medications Generic Name Dose Route Start Last Admin Trade Name Freq PRN Reason Stop Dose Admin Atorvastatin Calcium 80 mg 05/03/20 22:00 05/03/20 22:16 Lipitor - PO 80 mg HS DANI Administration Ezetimibe 10 mg 05/03/20 10:00 05/04/20 09:24 Zetia - PO 10 mg DAILY DANI Administration Enoxaparin Sodium 40 mg 05/03/20 10:00 05/04/20 09:24 Lovenox - SQ 40 mg DAILY DANI Administration Insulin Aspart 1 vial 05/03/20 11:00 05/04/20 11:59 Novolog Vial Sliding Scale - SQ 4 units ACHS DANI Administration Protocol Insulin Detemir 20 units 05/03/20 22:00 05/03/20 22:16 Levemir Vial SQ 20 units HS DANI Administration Lisinopril 2.5 mg 05/03/20 10:00 05/04/20 09:24 Prinivil PO 2.5 mg DAILY DANI Administration Pantoprazole Sodium 40 mg 05/03/20 12:30 05/04/20 09:24 Protonix - PO 40 mg DAILY DANI Administration Home Medications Medication Instructions Recorded Atorvastatin Ca [Lipitor] 80 mg PO HS 05/03/20 Ezetimibe 10 mg PO DAILY 05/03/20 Insulin Glargine,Hum.rec.anlog 34 unit SQ HS 05/03/20 [Lantus Solostar] Insulin Lispro [Humalog] 14 unit SQ DAILY 05/03/20 Lisinopril [Zestril] 2.5 mg PO DAILY 05/03/20 Metformin HCl [Glucophage] 500 mg PO BID 05/03/20 ASSESSMENT AND PLAN: 69 year old male with history of HTN, HLD, DM 2, presents with complaint of orthopnea with central chest discomfort. 1. Atypical Chest Pain on background history of Orthopnea, worse over past month. ECG - no acute changes TropI neg x 3. BNP 72 Telemonitoring Echo pending No signs of fluid overload/CHF Cardio evaluated and recommends Stress test in AM. Overnight pulse oximetry monitoring - may benefit from sleep study as outpatient for possible sleep apnea. 2. Possible GERD - trial of PPI 3. HTN - Continue Lisinopril 4. HLD - Continue Lipitor 5. DM 2 - Metformin held. Maintain on Levemir/Novolog sliding scale. 6. L Humerus Sclerotic density, possible bone infarct - further confirmatory Ix as out-patient. 7, Leukopenia - chronic, being worked up at [facility]. DVT Px - Lovenox SQ Visit type - Emergency Visit Emergency Visit: Yes ED Registration Date: 05/03/20 Care time: The patient presented to the Emergency Department on the above date and was hospitalized for further evaluation of their emergent condition. - New Patient This patient is new to me today: No - Critical Care Critical Care patient: No - Discharge Referral Referred to [facility] Med P.C[facility] No - Medication Review Med list reviewed for High Risk Meds patients 65 and older: Yes
--- NOTE | 2020-05-04 18:25 | EKG ---
Test Reason : Blood Pressure : / mmHG Vent. Rate : 069 BPM Atrial Rate : 069 BPM P-R Int : 164 ms QRS Dur : 076 ms QT Int : 398 ms P-R-T Axes : 048 006 021 degrees QTc Int : 426 ms NORMAL SINUS RHYTHM NORMAL ECG WHEN COMPARED WITH ECG OF 24-APR-2015 20:14, NO SIGNIFICANT CHANGE WAS FOUND Confirmed by MD RUSHING MOYSES ([id number]) on 05/04/2020 6:25:39 PM Referred By: Confirmed By:FLOYD RUSHING MD
[2020-05-04] MEDS: ATORVASTATIN CA 80 MG TABLET (FP) PO SCH (21:48)
[2020-05-04] MEDS: INSULIN (LEVEMIR) 100 UNITS/ML UNITS SQ SCH (21:55)
[2020-05-05] MEDS: INSULIN SLIDING SCALE (NOVOLOG) 1 VIAL SQ SCH ×4 (06:02→21:41)
[2020-05-05] MEDS: EZETIMIBE 10 MG TABLET (FP) PO SCH (09:36)
[2020-05-05] MEDS: PANTOPRAZOLE 40 MG TABLET PO SCH (09:36)
[2020-05-05] MEDS: LISINOPRIL 5 MG TABLET (FP) PO SCH (09:36)
[2020-05-05] MEDS: ENOXAPARIN NA (PORCINE) 40 MG/0.4 ML DISP.SYRIN SQ SCH (09:37)
--- NOTE | 2020-05-05 11:17 | ECHO ---
Name: OTTO LAWRENCE Exam:Adult Echocardiogram Study Date: 05/05/2020 09:57 AM Age: 69 yrs Reason For Study: Chest pain Height: 66 in Weight: 173 lb BSA: 1.9 m2 MMode/2D Measurements & Calculations IVSd: 1.8 cm Ao root diam: 3.1 cm LVIDd: 3.8 cm LA dimension: 4.4 cm LVIDs: 2.5 cm ACS: 1.9 cm LVPWd: 0.88 cm LVPWs: 0.87 cm EDV(Teich): 62.9 ml ESV(Teich): 21.4 ml LVOT diam: 2.0 cm LAV (MOD-bp): 32.0 ml TAPSE: 1.8 cm RV S Zenon: 15.9 cm/sec Doppler Measurements & Calculations MV V2 max: 108.0 cm/sec MV E max zenon: 94.8 cm/sec MV max P.7 mmHg MV A max zenon: 70.1 cm/sec MV V2 mean: 66.7 cm/sec MV E/A: 1.4 MV mean P.0 mmHg MV dec time: 0.27 sec MV V2 VTI: 33.0 cm Ao V2 max: 163.4 cm/sec LV V1 max P.0 mmHg Ao max P.7 mmHg LV V1 max: 112.0 cm/sec KARINA(V,D): 2.0 cm2 MR max zenon: 402.8 cm/sec TR max zenon: 265.2 cm/sec MR max P.8 mmHg TR max P.1 mmHg PA V2 max: 133.0 cm/sec Med Peak E' Zenon: 7.6 cm/sec PA max P.1 mmHg Med E/e': 12.5 Lat Peak E' Zenon: 10.3 cm/sec Lat E/e': 9.2 Procedure A complete two-dimensional transthoracic echocardiogram was performed (2D, M-mode, Doppler and color flow Doppler). Left Ventricle The left ventricle is normal in size. Left ventricular systolic function is normal. Ejection Fraction = 60- 65%. No regional wall motion abnormalities noted. Right Ventricle The right ventricle is normal size. The right ventricular systolic function is normal. RV systolic TD I is 16 cm/s. Atria The left atrial size is normal. LA volume index is 17 ml/m2. Right atrial size is normal. Mitral Valve There is mild mitral valve thickening. There is mild mitral annular calcification. There is mild mitr al regurgitation. Tricuspid Valve The tricuspid valve is normal in structure and function. There is mild tricuspid regurgitation. PASP is at least 34 mmHg if RA pressure is assumed 3 mmHg. (IVC was not adequately visualized to assess RA press ure). Aortic Valve There is mild aortic sclerosis.;. No aortic regurgitation is present. Pulmonic Valve The pulmonic valve is not well seen, but is grossly normal. Trace to mild pulmonic valvular regurgita tion. Great Vessels The aortic root is normal size. Pericardium/Pleura There is no pericardial effusion. Interpretation Summary The left ventricle is normal in size. Left ventricular systolic function is normal. No regional wall motion abnormalities noted. Ejection Fraction = 60-65%. The right ventricular systolic function is normal. The left atrial size is normal. Right atrial size is normal. There is mild mitral valve thickening. There is mild mitral annular calcification. There is mild mitral regurgitation. There is mild tricuspid regurgitation. PASP is at least 34 mmHg if RA pressure is assumed 3 mmHg. (IVC was not adequately visualized to asse ss RA pressure) There is mild aortic sclerosis. Trace to mild pulmonic valvular regurgitation. There is no pericardial effusion. Ángel Vasquez MD 05/05/2020 11:16 AM
[2020-05-05 12:11] LABS: HEMATOCRIT 33.8 % (35.4-49); HEMOGLOBIN 11.3 GM/dL (11.7-16.9); MCH 29.6 pg (25.7-33.7); MCHC 33.3 g/dl (32.0-35.9); MEAN CELL VOLUME 88.9 fl (80-96); MEAN PLT VOLUME 8.7 fl (7.5-11.1); PLATELET COUNT 139 K/MM3 (134-434); RBC 3.81 M/mm3 (4.00-5.60); RDW 14.4 % (11.9-15.9); WHITE BLOOD COUNT 2.6 K/mm3 (4.0-10.0)
--- NOTE | 2020-05-05 12:20 | PN ---
Progress Note (short form) - Note Progress Note: Chief Complaint: sob s: feels well today, no cp sob palps dizzy Current Medications Generic Name Dose Route Start Last Admin Trade Name Ghislaine PRN Reason Stop Dose Admin Atorvastatin Calcium 80 mg 05/03/20 22:00 05/04/20 21:48 Lipitor - PO 80 mg HS DANI Administration Ezetimibe 10 mg 05/03/20 10:00 05/05/20 09:36 Zetia - PO 10 mg DAILY DANI Administration Enoxaparin Sodium 40 mg 05/03/20 10:00 05/05/20 09:37 Lovenox - SQ 40 mg DAILY DANI Administration Insulin Aspart 1 vial 05/03/20 11:00 05/05/20 11:37 Novolog Vial Sliding Scale - SQ 2 units ACHS DANI Administration Protocol Insulin Detemir 20 units 05/03/20 22:00 05/04/20 21:55 Levemir Vial SQ 20 units HS DANI Administration Lisinopril 2.5 mg 05/03/20 10:00 05/05/20 09:36 Prinivil PO 2.5 mg DAILY DANI Administration Pantoprazole Sodium 40 mg 05/03/20 12:30 05/05/20 09:36 Protonix - PO 40 mg DAILY DANI Administration Vital Signs Period Temp Pulse Resp BP Sys/Patterson Pulse Ox Last 24 Hr 98.0 F-99.2 F 61-76 18-18 110-129/47-72 96-99 Constitutional: Yes: Well Nourished, No Distress Eyes: No: Sclera Icterus HENT: No: Nasal Congestion Neck: No: Decreased ROM Respiratory: Yes: CTA Bilaterally. No: Accessory Muscle Use Gastrointestinal: Yes: Normal Bowel Sounds. No: Distention, Hepatomegaly, Palpable Mass, Tenderness Cardiovascular: Yes: Regular Rate and Rhythm JVD: No Carotid Bruit: No PMI: Non-Displaced Heart Sounds: Yes: S1, S2. No: Gallop Murmur: No: Systolic Murmur, Diastolic Murmur Extremities: No: Cool, Cyanosis Edema: No Peripheral Pulses: 2+ Left Carotid, 2+ Right Carotid, 2+ Left Doralis Pedis, 2+ Right Dorsalis Pedis Integumentary: No: Jaundice Neurological: Yes: Alert, Oriented (x3) Psychiatric: No: Agitated - Other Data Labs, Other Data: CBC, BMP 05/03/20 04:15 05/03/20 04:15 INR, PTT INR 0.97 (0.83-1.09) 05/03/20 04:15 Troponin, BNP 05/03/20 05/03/20 10:21 14:36 Troponin I < 0.02 < 0.02 Troponin, BNP 05/03/20 05/03/20 10:21 14:36 Troponin I < 0.02 < 0.02 Assessment/Plan ECG: NSR, WNL CXR: clear lungs/pleura tele: SR sob, chest discomfort: -sx began 02/05, following undiagnosed/untreated Covid 01/06 (Abs 02/05 positive) -atypical occurs only in bed, not with activity -has had no signs of HF and no activities with moderate amt of exertion. -ECG normal, trop neg x 3 -this is not a sx of angina--stress test not indicated -echo today is unremarkable HTN: -BP controlled -home meds HPL: -cont prior plan DM: -per hospitalist leukopenia, anemia: -chronic, stable--being followed closely by his PMD and by brii at [facility] cardiac mcmahan stable for dc
[2020-05-05 13:20] LABS: BLOOD UREA NITROGEN 14.8 mg/dL (7-18); CALCIUM 8.9 mg/dL (8.5-10.1); CREATININE 1.1 mg/dL (0.55-1.3); POTASSIUM 4.3 mmol/L (3.5-5.1)
--- NOTE | 2020-05-05 15:31 | PN ---
Teaching Attending Note Name of Resident: Cameron Moya ATTENDING PHYSICIAN STATEMENT I saw and evaluated the patient. I reviewed the resident's note and discussed the case with the resident. I agree with the resident's findings and plan as documented. SUBJECTIVE: Reported SOB while sleeping with associated central chest discomfort on admission. No fever/chills/cough/sputum/hemoptysis. OBJECTIVE: Afebrile, Hemodynamically stable. Last Vital Signs Temp Pulse Resp BP Pulse Ox 98.5 F 69 20 143/61 99 05/05/20 13:05/05/20 13:00 05/05/20 13:05/05/20 13:05/05/20 10:00 Heart - S1, S2, RRR Lungs - clear to auscultation Abdomen - Soft, non-tender. Bowel Sounds normal. Extremities - no edema, no calf tenderness Neuro - AAO x 3. Tone/Power normal. Laboratory Results - last 24 hr 05/04/20 05/05/20 05/05/20 21:49 05:40 11:30 WBC 2.6 L RBC 3.81 L Hgb 11.3 L Hct 33.8 L MCV 88.9 MCH 29.6 MCHC 33.3 RDW 14.4 Plt Count 139 MPV 8.7 Sodium Potassium Chloride Carbon Dioxide Anion Gap BUN Creatinine Est GFR (CKD-EPI)AfAm Est GFR (CKD-EPI)NonAf POC Glucometer 214 132 Random Glucose Calcium Phosphorus Magnesium 05/05/20 05/05/20 11:30 11:34 WBC RBC Hgb Hct MCV MCH MCHC RDW Plt Count MPV Sodium 138 Potassium 4.3 Chloride 106 Carbon Dioxide 26 Anion Gap 7 L BUN 14.8 Creatinine 1.1 Est GFR (CKD-EPI)AfAm 78.41 Est GFR (CKD-EPI)NonAf 67.66 POC Glucometer 192 Random Glucose 198 H Calcium 8.9 Phosphorus 3.0 Magnesium 2.0 Current Medications Generic Name Dose Route Start Last Admin Trade Name Freq PRN Reason Stop Dose Admin Atorvastatin Calcium 80 mg 05/03/20 22:00 05/04/20 21:48 Lipitor - PO 80 mg HS DANI Administration Ezetimibe 10 mg 05/03/20 10:05/05/20 09:36 Zetia - PO 10 mg DAILY DANI Administration Enoxaparin Sodium 40 mg 05/03/20 10:05/05/20 09:37 Lovenox - SQ 40 mg DAILY DANI Administration Insulin Aspart 1 vial 05/03/20 11:00 05/05/20 11:37 Novolog Vial Sliding Scale - SQ 2 units ACHS DANI Administration Protocol Insulin Detemir 20 units 05/03/20 22:00 05/04/20 21:55 Levemir Vial SQ 20 units HS DANI Administration Lisinopril 2.5 mg 05/03/20 10:00 05/05/20 09:36 Prinivil PO 2.5 mg DAILY DANI Administration Pantoprazole Sodium 40 mg 05/03/20 12:30 05/05/20 09:36 Protonix - PO 40 mg DAILY DANI Administration Home Medications Medication Instructions Recorded Atorvastatin Ca [Lipitor] 80 mg PO HS 05/03/20 Ezetimibe 10 mg PO DAILY 05/03/20 Insulin Glargine,Hum.rec.anlog 34 unit SQ HS 05/03/20 [Lantus Solostar] Insulin Lispro [Humalog] 14 unit SQ DAILY 05/03/20 Lisinopril [Zestril] 2.5 mg PO DAILY 05/03/20 Metformin HCl [Glucophage] 500 mg PO BID 05/03/20 ASSESSMENT AND PLAN: 69 year old male with history of HTN, HLD, DM 2, presents with complaint of orthopnea with central chest discomfort. 1. Atypical Chest Pain on background history of Orthopnea, worse over past month. NO EXERTIONAL SYMPTOMS ECG - no acute changes Trop I neg x 3. BNP 72 No Telemonitoring events Echo - normal. No signs of fluid overload/CHF Cardio evaluated and recommends no need for Stress testing. Overnight pulse oximetry monitoring showed no desturation less than 92-94% May benefit from PFTs and sleep study as outpatient for possible sleep apnea. CT hest to exclude intrinsic lung disease/ILD 2. Possible GERD - trial of PPI 3. HTN - Continue Lisinopril 4. HLD - Continue Lipitor 5. DM 2 - Metformin to be resumed on discharge 6. L Humerus Sclerotic density, possible bone infarct - further confirmatory Ix as out-patient - refer to Orthopedics. 7, Leukopenia - chronic, being worked up at [facility]. Medically Stable for discharge with PCP, Cardio, Pulm, Orto follow ups.
--- NOTE | 2020-05-05 18:10 | PN ---
Physical Exam: SUBJECTIVE: No overnight events. Patient seen and examined. No complaints. Endorses feeling well OBJECTIVE: Vital Signs Period Temp Pulse Resp BP Sys/Patterson Pulse Ox Last 24 Hr 98.0 F-98.5 F 61-71 18-20 119-143/47-72 96-99 GENERAL: The patient is awake, alert, and fully oriented, in no acute distress. HEENT: Normal with no signs of trauma. No ptosis. LUNGS: Breath sounds equal, clear to auscultation bilaterally, no wheezes, no crackles, no accessory muscle use. Chest TTP on L side HEART: Regular rate and rhythm, S1, S2 without murmur, rub or gallop. ABDOMEN: Soft, nontender, nondistended, normoactive bowel sounds, no guarding, no rebound EXTREMITIES: 2+ pulses, warm, well-perfused, no edema. venous stasis changes b/l LE NEUROLOGICAL: Normal speech, gait not observed. PSYCH: Normal mood, normal affect. Laboratory Results - last 24 hr 05/04/20 05/05/20 05/05/20 21:49 05:40 11:30 WBC 2.6 L RBC 3.81 L Hgb 11.3 L Hct 33.8 L MCV 88.9 MCH 29.6 MCHC 33.3 RDW 14.4 Plt Count 139 MPV 8.7 Sodium Potassium Chloride Carbon Dioxide Anion Gap BUN Creatinine Est GFR (CKD-EPI)AfAm Est GFR (CKD-EPI)NonAf POC Glucometer 214 132 Random Glucose Calcium Phosphorus Magnesium 05/05/20 05/05/20 11:30 11:34 WBC RBC Hgb Hct MCV MCH MCHC RDW Plt Count MPV Sodium 138 Potassium 4.3 Chloride 106 Carbon Dioxide 26 Anion Gap 7 L BUN 14.8 Creatinine 1.1 Est GFR (CKD-EPI)AfAm 78.41 Est GFR (CKD-EPI)NonAf 67.66 POC Glucometer 192 Random Glucose 198 H Calcium 8.9 Phosphorus 3.0 Magnesium 2.0 Active Medications Generic Name Dose Route Start Last Admin Trade Name Freq PRN Reason Stop Dose Admin Atorvastatin Calcium 80 mg 05/03/20 22:00 05/04/20 21:48 Lipitor - PO 80 mg HS DANI Administration Ezetimibe 10 mg 05/03/20 10:00 05/05/20 09:36 Zetia - PO 10 mg DAILY DANI Administration Enoxaparin Sodium 40 mg 05/03/20 10:00 05/05/20 09:37 Lovenox - SQ 40 mg DAILY DANI Administration Insulin Aspart 1 vial 05/03/20 11:00 05/05/20 16:46 Novolog Vial Sliding Scale - SQ 4 units ACHS DANI Administration Protocol Insulin Detemir 20 units 05/03/20 22:00 05/04/20 21:55 Levemir Vial SQ 20 units HS DANI Administration Lisinopril 2.5 mg 05/03/20 10:00 05/05/20 09:36 Prinivil PO 2.5 mg DAILY DANI Administration Pantoprazole Sodium 40 mg 05/03/20 12:30 05/05/20 09:36 Protonix - PO 40 mg DAILY DANI Administration ASSESSMENT/PLAN: 69 YO M PMH HTN, HLD, DM p/w orthopnea and chest pain. #Chest pain in setting of worsening orthopnea for past month -Chest pain and SOB are non-exertional. Only occur when going to sleep -EKG: NSR -ECHO: nml LV size & function. EF 60-65%. PASP at least 34 mm HG -Trops neg x 3 BNP 72 -Telemonitor: NSR, QTC 420 -Pulse ox monitor overnight: desaturation was 92-94% at most -refer to pulm on dc for PFTs & sleep study for sleep apnea -f/u CT chest results to r/o ILD, masses #Possible GERD trial PPI #HTN: c/w home lisinopril # HLD: c/w home Lipitor #DM: BGM ISS resume metformin on dc #Sclerotic Density in L humerus -2/2 possible bone infarct. seen in prior study in 2014 -refer to ortho at [facility] #Leukopenia -chronic for pt; currently w/u at [facility] #DVT PPX lovenox 40 sq #FEN no ivf monitor lytes sodium controlled diet #DISPO dc pending CT chest results maintain tele Visit type - Emergency Visit Emergency Visit: Yes ED Registration Date: 05/03/20 Care time: The patient presented to the Emergency Department on the above date and was hospitalized for further evaluation of their emergent condition. - New Patient This patient is new to me today: Yes Date on this admission: 05/05/20 - Critical Care Critical Care patient: No - Medication Review Med list reviewed for High Risk Meds patients 65 and older: Yes ATTENDING PHYSICIAN STATEMENT I saw and evaluated the patient. I reviewed the resident's note and discussed the case with the resident. I agree with the resident's findings and plan as documented. SUBJECTIVE: OBJECTIVE: ASSESSMENT AND PLAN:
[2020-05-05] MEDS: INSULIN (LEVEMIR) 100 UNITS/ML UNITS SQ SCH (21:41)
[2020-05-05] MEDS: ATORVASTATIN CA 80 MG TABLET (FP) PO SCH (21:41)
[2020-05-06] MEDS: INSULIN SLIDING SCALE (NOVOLOG) 1 VIAL SQ SCH ×2 (06:25→12:18)
[2020-05-06] MEDS: ENOXAPARIN NA (PORCINE) 40 MG/0.4 ML DISP.SYRIN SQ SCH (09:36)
[2020-05-06] MEDS: EZETIMIBE 10 MG TABLET (FP) PO SCH (09:36)
[2020-05-06] MEDS: PANTOPRAZOLE 40 MG TABLET PO SCH (09:37)
[2020-05-06] MEDS: LISINOPRIL 5 MG TABLET (FP) PO SCH (09:38)
--- NOTE | 2020-05-06 13:21 | PN ---
Progress Note (short form) - Note Progress Note: cc: sob s: no cp sob palps dizzy Current Medications Generic Name Dose Route Start Last Admin Trade Name Ghislaine PRN Reason Stop Dose Admin Atorvastatin Calcium 80 mg 05/03/20 22:00 05/05/20 21:41 Lipitor - PO 80 mg HS DANI Administration Ezetimibe 10 mg 05/03/20 10:00 05/06/20 09:36 Zetia - PO 10 mg DAILY DANI Administration Enoxaparin Sodium 40 mg 05/03/20 10:00 05/06/20 09:36 Lovenox - SQ 40 mg DAILY DANI Administration Insulin Aspart 1 vial 05/03/20 11:00 05/06/20 12:18 Novolog Vial Sliding Scale - SQ 4 units ACHS DANI Administration Protocol Insulin Detemir 20 units 05/03/20 22:00 05/05/20 21:41 Levemir Vial SQ 20 units HS DANI Administration Lisinopril 2.5 mg 05/03/20 10:00 05/06/20 09:38 Prinivil PO 2.5 mg DAILY DANI Administration Pantoprazole Sodium 40 mg 05/03/20 12:30 05/06/20 09:37 Protonix - PO 40 mg DAILY DANI Administration Vital Signs Period Temp Pulse Resp BP Sys/Patterson Pulse Ox Last 24 Hr 97.4 F-98.7 F 60-81 18-20 111-128/56-72 95-100 Constitutional: Yes: Well Nourished, No Distress Eyes: No: Sclera Icterus HENT: No: Nasal Congestion Neck: No: Decreased ROM Respiratory: Yes: CTA Bilaterally. No: Accessory Muscle Use Gastrointestinal: Yes: Normal Bowel Sounds. No: Distention, Hepatomegaly, Palpable Mass, Tenderness Cardiovascular: Yes: Regular Rate and Rhythm JVD: No Carotid Bruit: No PMI: Non-Displaced Heart Sounds: Yes: S1, S2. No: Gallop Murmur: No: Systolic Murmur, Diastolic Murmur Extremities: No: Cool, Cyanosis Edema: No Peripheral Pulses: 2+ Left Carotid, 2+ Right Carotid, 2+ Left Doralis Pedis, 2+ Right Dorsalis Pedis Integumentary: No: Jaundice Neurological: Yes: Alert, Oriented (x3) Psychiatric: No: Agitated Assessment/Plan ECG: NSR, WNL CXR: clear lungs/pleura tele: SR sob, chest discomfort: -sx began 02/05, following undiagnosed/untreated Covid 01/06 (Abs 02/05 positive) -atypical occurs only in bed, not with activity -has had no signs of HF and no activities with moderate amt of exertion. -ECG normal, trop neg x 3 -this is not a sx of angina--stress test not indicated -echo today is unremarkable - CT chest showed extensive atherosclerotic coronary calcifications - start aspirin, cont statin. follow up as outpatient to consider further ischemic workup, atypical symptoms HTN: -BP controlled -home meds HPL: -cont prior plan DM: -per hospitalist leukopenia, anemia: -chronic, stable--being followed closely by his PMD and by heme at [facility] cardiac mcmahan stable for dc
[2020-05-06] MEDS ORDERED: ASPIRIN COATED 81 MG TABLET.EC PO SCH (13:30)
--- NOTE | 2020-05-06 14:31 | PN ---
Teaching Attending Note Name of Resident: Cameron Moya ATTENDING PHYSICIAN STATEMENT I saw and evaluated the patient. I reviewed the resident's note and discussed the case with the resident. I agree with the resident's findings and plan as documented. SUBJECTIVE: Patient states that he still has pain in his back at night, its below the lungs and above the kidneys He wants to go home, since nothing has been done to help with this condition Patient reports that it happens every night and its a tightness sensation OBJECTIVE: Vital Signs Period Temp Pulse Resp BP Sys/Patterson Pulse Ox Last 24 Hr 97.4 F-98.7 F 60-81 18-20 111-128/56-72 95-100 GENERAL: Awake, alert, in no acute distress. HEAD: Normal with no signs of trauma. EYES: Pupils equal, round and reactive to light, extraocular movements intact, sclera anicteric, conjunctiva clear. EARS, NOSE, THROAT: Ears normal, nares patent, Moist mucous membranes. NECK: Normal range of motion, No JVD, LUNGS: Breath sounds equal, clear to auscultation bilaterally. No wheezes, and no crackles. No accessory muscle use. HEART: Regular rate and rhythm, normal S1 and S2 without murmur, rub or gallop. ABDOMEN: Soft, nontender, not distended, normoactive bowel sounds, no guarding, no rebound, MUSCULOSKELETAL: Normal range of motion at all joints. No bony deformities or tenderness. No CVA tenderness. EXTREMITIES: 2+ pulses, warm, well-perfused. No calf tenderness. No peripheral edema. NEUROLOGICAL: Cranial nerves II-XII intact. Normal speech. PSYCHIATRIC: Cooperative. Good eye contact. Appropriate mood and affect. SKIN: Warm, dry, normal turgor, no rashes or lesions noted. ASSESSMENT AND PLAN: 69 y/o M with PMH as noted who presents with orthopnea Orthopnea: Likely in setting of Pulmonary Hypertension CT chest reviewed Patient noted to have an episode of desaturation overnight that resolved spontaneously patient would likely benefit from Pulm/Cardio workup with LHC, RHC, PFT as well as Autoimmune workup to evaluate the etiology of Pulm HTN In addition, patient would benefit from Sleep study All of this can be done as an outpatient Patient does not appear volume overloaded, would not benefit from diuretic administration at this time Patient may need ischemic workup per Cards Rest of plan as per resident note
[2020-05-06 14:45] VITALS: BP 146/58; PULSE 83; TEMP 97.9
--- NOTE | 2020-05-06 15:57 | DS ---
Physical Exam: SUBJECTIVE: No overnight events. Patient seen and examined. No complaints. Endorses feeling well OBJECTIVE: Vital Signs Period Temp Pulse Resp BP Sys/Patterson Pulse Ox Last 24 Hr 97.4 F-98.7 F 60-83 16-20 111-146/56-72 95-100 PHYSICAL EXAM GENERAL: The patient is awake, alert, and fully oriented, in no acute distress. HEENT: Normal with no signs of trauma. No ptosis. LUNGS: Breath sounds equal, clear to auscultation bilaterally, no wheezes, no crackles, no accessory muscle use. HEART: Regular rate and rhythm, S1, S2 without murmur, rub or gallop. ABDOMEN: Soft, nontender, nondistended, normoactive bowel sounds, no guarding, no rebound EXTREMITIES: 2+ pulses, warm, well-perfused, no edema. venous stasis changes b/l LE NEUROLOGICAL: Normal speech, gait not observed. PSYCH: Normal mood, normal affect. LABS Laboratory Results - last 24 hr 05/05/20 05/06/20 21:39 05:50 POC Glucometer 170 123 Laboratory Last Values WBC 2.6 K/mm3 (4.0-10.0) L 05/05/20 11:30 RBC 3.81 M/mm3 (4.00-5.60) L 05/05/20 11:30 Hgb 11.3 GM/dL (11.7-16.9) L 05/05/20 11:30 Hct 33.8 % (35.4-49) L 05/05/20 11:30 MCV 88.9 fl (80-96) 05/05/20 11:30 MCH 29.6 pg (25.7-33.7) 05/05/20 11:30 MCHC 33.3 g/dl (32.0-35.9) 05/05/20 11:30 RDW 14.4 % (11.9-15.9) 05/05/20 11:30 Plt Count 139 K/MM3 (134-434) 05/05/20 11:30 MPV 8.7 fl (7.5-11.1) 05/05/20 11:30 Absolute Neuts (auto) 1.1 K/mm3 (1.5-8.0) L 05/03/20 04:15 Neutrophils % 42.4 % (42.8-82.8) L 05/03/20 04:15 Lymphocytes % 42.6 % (8-40) H 05/03/20 04:15 Monocytes % 12.6 % (3.8-10.2) H 05/03/20 04:15 Eosinophils % 2.0 % (0-4.5) D 05/03/20 04:15 Basophils % 0.4 % (0-2.0) 05/03/20 04:15 Nucleated RBC % 0 % (0-0) 05/03/20 04:15 PT with INR 11.40 SEC (9.7-13.0) 05/03/20 04:15 INR 0.97 (0.83-1.09) 05/03/20 04:15 PTT (Actin FS) 32.1 SECONDS (25.2-36.5) 05/03/20 04:15 Sodium 138 mmol/L (136-145) 05/05/20 11:30 Potassium 4.3 mmol/L (3.5-5.1) 05/05/20 11:30 Chloride 106 mmol/L (98-107) 05/05/20 11:30 Carbon Dioxide 26 mmol/L (21-32) 05/05/20 11:30 Anion Gap 7 MMOL/L (8-16) L 05/05/20 11:30 BUN 14.8 mg/dL (7-18) 05/05/20 11:30 Creatinine 1.1 mg/dL (0.55-1.3) 05/05/20 11:30 Est GFR (CKD-EPI)AfAm 78.41 05/05/20 11:30 Est GFR (CKD-EPI)NonAf 67.66 05/05/20 11:30 POC Glucometer 123 UNITS (80-120) 05/06/20 05:50 Random Glucose 198 mg/dL (74-106) H 05/05/20 11:30 Hemoglobin A1c % 7.8 % (4.2-6.3) H 05/03/20 10:39 Calcium 8.9 mg/dL (8.5-10.1) 05/05/20 11:30 Phosphorus 3.0 mg/dL (2.5-4.9) 05/05/20 11:30 Magnesium 2.0 mg/dL (1.8-2.4) 05/05/20 11:30 Total Bilirubin 0.6 mg/dL (0.2-1) 05/03/20 04:15 AST 37 U/L (15-37) 05/03/20 04:15 ALT 36 U/L (13-61) 05/03/20 04:15 Alkaline Phosphatase 70 U/L (45-117) 05/03/20 04:15 Creatine Kinase 140 U/L (26-308) 05/03/20 14:36 Creatine Kinase Index 1.5 % (0.0-5.0) 05/03/20 04:15 CK-MB (CK-2) 3.0 ng/mL (0.5-3.6) 05/03/20 04:15 Troponin I < 0.02 ng/ml (0.00-0.05) 05/03/20 14:36 B-Natriuretic Peptide 72.8 pg/ml (5-125) 05/03/20 04:15 Total Protein 6.1 g/dl (6.4-8.2) L 05/03/20 04:15 Albumin 3.8 g/dl (3.4-5.0) 05/03/20 04:15 COVID-19 ([facility]) Not detected (Not Detected) 05/03/20 06:15 HOSPITAL COURSE: 69 YO M PMH HTN, HLD, DM p/w orthopnea and chest pain. Chest pain and SOB are non-exertional. Only occur when going to sleep. EKG showed NSR. Trops neg x 3. BNP 72. EKG: NSR. ECHO: nml LV size & function. EF 60-65%. PASP at least 34 mm HG. Referred pt to pulm on [facility] for PFTs & sleep study for sleep apnea. X-ray showed Sclerotic Density in L humerus 2/2 possible bone infarct that was seen in prior study in 2015. Pt was referred to ortho at [facility]. Pt is stable for discharge. Date of Admission:05/03/20 Date of Discharge: 05/06/20 Minutes to complete discharge: 45 Discharge Summary Problems reviewed: Yes Reason For Visit: ORTHOPNEA Current Active Problems Chest pain (Acute) Orthopnea (Acute) Diabetes mellitus (Chronic) Condition: Stable - Instructions Diet, Activity, Other Instructions: You were admitted to the hospital for shortness of breath. EKG of your heart showed a normal rhythm, and Echocardiogram of your heart showed a normal heart size and function. The pressure in your pulmonary artery may be elevated. This is something that can be monitored with the help of your primary care doctor. Imaging showed a dense area of bone on your left arm was seen on x-ray, which seen in a previous image in 2015. Please follow-up with an orthopedic surgeon regarding your are. You were given medication to reduce stomach acid production, which might mitigate your chest pain. To further evaluate your shortness of breath, please follow-up with a nut culler for evaluation for Pulmonary Function Tests (PFTs). Because you reported shortness of breath while sleeping, please follow- up with the nut culler also for evaluation for possible sleep study. A chest CAT scan did not show evidence of lung disease, but there was a small liver nodule that should be followed up with your primary care doctor. Labwork showed decreased white blood cells in your blood, which is chronic condition for you. Since you already started follow-up at [facility] for this condition, please continue to follow-up with your physicians at [facility] for the low amount of white blood cells. Your blood shows low hemoglobin and low hematocrit (percentage of red blood cells in the blood) indicating possible anemia. Please follow-up with your primary care physician for repeat bloodwork for a Complete Blood Count (CBC) to re-evaluate your hemoglobin and hematocrit level. Your symptoms improved. You are stable for discharge. MEDICATION Please START taking pantoprazole (Protonix) 40 mg once a day. Please START taking Aspirin 81 mg once a day. Please take other home medications as prescribed. FOLLOW-UP Please follow-up with nut culler, Dr. Ball, for Pulmonary Function Tests (PFTs) and sleep study. Please follow-up with crocodile farmer, Dr. Bartlett, regarding your chest pain and your cardiac condition. Please follow-up with orthopedic surgeon, Dr. Madden, regarding the bone density in your arm. Please follow-up with your primary care physician, Dr. Mandel, to discuss your recent hospitalization and for general health maintenance. Please continue to see your chucking and sawing machine operator at [facility], who you already began workup with for low white blood cell count, for further evaluation. ADDITIONAL INSTRUCTIONS Please call 911 or come directly to the emergency department if you experience worsening symptoms, chest pain, shortness of breath, loss of alertness/awareness, loss of function, chest pain, unusual headache, vision change, difficulty speaking, numbness, tingling, unusual bleeding, or any alarming symptoms Referrals: Girish Ball MD [Staff Physician] - (admitted for chest pain and orthopnea evaluate for PFTs and sleep study for sleep apnea) Geovanny Barltett MD [Staff Physician] - (admitted for chest pain/SOB/orthopnea ECHO: PASP at least 34 mm Hg; mild aortic sclerosis, pulmonic valvular regurg, tricuspid regurg, mitral regurg, mitral valve thickening. EF 60-65%, LV sysotlic function/size normal) Lonnie Madden MD [Staff Physician] - (x-ray: sclerotic density in the proximal Left Humerus ) Joellen Sanches MD [Primary Care Provider] - (admitted for Chest pain/ orthopnea low WBCs low hemoglobin and low hematocrit: please evaluate. Repeat CBC ) Disposition: HOME - Home Medications Comprehensive Discharge Medication List: Ambulatory Orders Atorvastatin Ca [Lipitor] 80 mg PO DAILY 05/03/20 Ezetimibe 10 mg PO DAILY 05/03/20 Insulin Glargine,Hum.rec.anlog [Lantus Solostar] 46 unit SQ HS 05/03/20 Insulin Lispro [Humalog Kwikpen U-100] 14 unit SQ BID 05/03/20 Lisinopril [Zestril] 2.5 mg PO DAILY 05/03/20 Pantoprazole Sodium [Protonix -] 40 mg PO DAILY 30 Days #30 tablet.ec 05/05/20 metFORMIN HCL [Metformin HCl ER] 500 mg PO BID 05/05/20 Aspirin Coated [Ecotrin -] 81 mg PO DAILY 30 Days #30 tablet.ec 05/06/20 This patient is new to me today: No Emergency Visit: Yes ED Registration Date: 05/03/20 Care time: The patient presented to the Emergency Department on the above date and was hospitalized for further evaluation of their emergent condition. Critical Care patient: No - Discharge Referral Referred to [facility] No ATTENDING PHYSICIAN STATEMENT I saw and evaluated the patient. I reviewed the resident's note and discussed the case with the resident. I agree with the resident's findings and plan as documented. SUBJECTIVE: OBJECTIVE: ASSESSMENT AND PLAN:
== END 2020-05-06 16:30 | disposition home or self-care (01) ==
LOC: JER 03:11 → JERBED 05:43 → J4S 21:50
PROVIDERS: ADMIT Internal Medicine; ATTEND Internal Medicine
PROC: 3E023GC Introduction of Other Therapeutic Substance into Muscle, Percutaneous Approach (ICD-10-PCS; principal; 2020-05-03)
PROC: 3E013VG Introduction of Insulin into Subcutaneous Tissue, Percutaneous Approach (ICD-10-PCS; 2020-05-03)
DX: R07.89 Other chest pain (principal); D72.819 Decreased white blood cell count, unspecified; E11.65 Type 2 diabetes mellitus with hyperglycemia; R06.01 Orthopnea; I10 Essential (primary) hypertension; K21.9 Gastro-esophageal reflux disease without esophagitis; E78.5 Hyperlipidemia, unspecified; R06.02 Shortness of breath; F10.21 Alcohol dependence, in remission; Z29.9 Encounter for prophylactic measures, unspecified; Z79.4 Long term (current) use of insulin
CPT/HCPCS: 36415; 71045-TC-FY; 71250-TC; 80048; 80053; 82550; 82553; 82962; 83036; 83735; 83880; 84100; 84484; 85025; 85027; 85610; 85730; 93005; 93010; 93306-TC; 96372; 99285-25; G0378; U0003